=== PATIENT | male | born 2005 | race Caucasian/White ===

== ENCOUNTER 2025-07-16 00:10 | Emergency (ER) | payer OTHER ==
[2025-07-16 00:15] VITALS: BP 135/75; PULSE 92; RESP 20; TEMP 99.3; BMI 38.0
[2025-07-16] MEDS ORDERED: IBUPROFEN 600 MG TABLET (FP) PO ONE (00:47)
[2025-07-16] MEDS: IBUPROFEN 600 MG TABLET (FP) PO ONE (01:01)
== END 2025-07-16 01:53 | disposition home or self-care (01) ==
LOC: JER 00:10
DX: M26.69 Other specified disorders of temporomandibular joint (principal)
CPT/HCPCS: 70110-TC-FY; 99283-25